=== PATIENT | female | born 1965 | race Caucasian/White ===

== ENCOUNTER 2019-04-16 18:29 | Emergency (ER) | payer OTHER ==
[~2019-04-16] VITALS: Ht 177.8 cm; Wt 97.5 kg
[2019-04-16] MEDS ORDERED: OMEPRAZOLE40 MG PO (18:33)
[2019-04-16] MEDS ORDERED: NORCO 5-325 TA1 EAC1 PO (19:56)
[2019-04-16] MEDS ORDERED: IBUPROFEN 600600 M1 PO (20:00)
[2019-04-16 20:39] VITALS: BP 123/79
== END 2019-04-16 20:34 | disposition home or self-care (01) ==
LOC: ER 18:29
DX: S60.212A Contusion of left wrist, initial encounter (principal); R07.81 Pleurodynia; R51 Headache; K21.9 Gastro-esophageal reflux disease without esophagitis; F17.210 Nicotine dependence, cigarettes, uncomplicated; Z88.6 Allergy status to analgesic agent; W01.0XXA Fall on same level from slipping, tripping and stumbling without subsequent striking against object, initial encounter; Y93.01 Activity, walking, marching and hiking; Y92.89 Other specified places as the place of occurrence of the external cause; Y99.8 Other external cause status